=== PATIENT | female | born 1980 | race Caucasian/White ===

== ENCOUNTER 2020-04-30 14:30 | Emergency (ER) | payer MEDICAID ==
[~2020-04-30] VITALS: Ht 160 cm; Wt 88.0 kg
[2020-04-30 14:38] VITALS: Ht 160 cm; Wt 88.0 kg
[2020-04-30 18:21] VITALS: BP 128/74
== END 2020-04-30 18:09 | disposition home or self-care (01) ==
LOC: ED 14:30
DX: N61.1 Abscess of the breast and nipple (principal); Z98.890 Other specified postprocedural states
CPT/HCPCS: J2001